=== PATIENT | female | born 1950 | race African-American/Black ===

== ENCOUNTER 2021-03-21 10:22 | Emergency (ER) | payer OTHER ==
[~2021-03-21] VITALS: Ht 167.6 cm; Wt 66.7 kg
[2021-03-21] MEDS ORDERED: LEVO-T100 MCG PO (10:48)
[2021-03-21] MEDS ORDERED: LOSARTAN-HCTZ1 EACH PO (10:48)
[2021-03-21] MEDS ORDERED: MELOXICAM7.5 MG PO (10:49)
[2021-03-21 11:17] LABS: URINE BILIRUBIN NEGATIVE (Negative); URINE BLOOD NEGATIVE (Negative); URINE CLARITY CLEAR; URINE COLOR YELLOW; URINE GLUCOSE-RANDOM* NEGATIVE (Negative); URINE KETONES NEGATIVE (Negative); URINE LEUKOCYTES-REFLEX NEGATIVE (Negative); URINE NITRITE-REFLEX NEGATIVE (Negative); URINE PROTEIN (DIPSTICK) NEGATIVE (Negative); URINE UROBILINOGEN 0.2 E.U./dl (0.2-1.0)
[2021-03-21 11:19] LABS: ABSOLUTE NEUTROPHILS 1.7 thou/uL (1.4-8.2); BASOPHILS 1.1 % (0.0-2.0); EOSINOPHILS 1.1 % (0.0-3.0); HEMATOCRIT 44.7 % (37.0-47.0); HEMOGLOBIN 15.4 gm/dL (12.0-15.0); LYMPHOCYTES 38.8 % (24.0-44.0); MCH 34.1 pg (26.0-34.0); MCHC 34.4 g/dL (28.0-37.0); MCV 99.1 fL (80.0-100.0); MONOCYTES 7.8 % (1.0-8.0); PLATELET COUNT 163 thou/uL (150-400); POLYS 51.2 % (36.0-66.0); RBC 4.51 mil/uL (4.20-5.00); RDW 13.8 % (10.5-14.5); WBC 3.3 thou/uL (4.0-11.0)
[2021-03-21 11:36] LABS: CREATININE 0.8 mg/dL (0.6-1.0); POTASSIUM 3.8 mmol/L (3.5-5.1)
[2021-03-21 11:44] LABS: CALCIUM 9.1 mg/dL (8.5-10.1); TOTAL BILIRUBIN 0.5 mg/dL (0.2-1.0); TOTAL PROTEIN 7.4 g/dL (6.4-8.2)
[2021-03-21] MEDS ORDERED: FLEXERIL PO (12:09)
[2021-03-21] MEDS ORDERED: NAPROSYN500 MG PO (12:09)
[2021-03-21 12:18] VITALS: BP 154/82
== END 2021-03-21 12:22 | disposition home or self-care (01) ==
LOC: ER 10:22
PROVIDERS: Emergency Medicine
DX: N83.202 Unspecified ovarian cyst, left side (principal); R10.31 Right lower quadrant pain; I10 Essential (primary) hypertension; F17.210 Nicotine dependence, cigarettes, uncomplicated; Z90.710 Acquired absence of both cervix and uterus; Z90.89 Acquired absence of other organs; Z79.899 Other long term (current) drug therapy; Z88.1 Allergy status to other antibiotic agents; Z91.041 Radiographic dye allergy status